=== PATIENT | female | born 1985 | race American Indian/Alaskan Native ===

== ENCOUNTER 2018-04-29 08:28 | Emergency (ER) | payer SELFPAY ==
[2018-04-29] MEDS ORDERED: MOTRIN PO ONE (08:48)
[2018-04-29 09:41] LABS: Hemoglobin 12.5 gm/dl (10.1-14.3); Mean Corpuscular HGB Conc 34 % (30-34); Mean Corpuscular Hemoglobin 28 pg (28-32); Mean Corpuscular Volume 83 fl (79-97); Platelet Count 210 K/mm3 (140-440); Red Blood Count 4.44 M/mm3 (3.65-5.03); Red Cell Distribution Width 13.9 % (13.2-15.2)
[2018-04-29 09:52] LABS: Bilirubin,Urine NEG (Negative); Blood,Urine SM (Negative); Color,Urine Yellow (Yellow); Mucus,Urine 3+ /HPF; Protein,Urine <15 mg/dL mg/dL (Negative)
[2018-04-29 09:59] LABS: Alanine Aminotransferase 11 units/L (7-56); Albumin 4.3 g/dL (3.9-5); BUN/Creatinine Ratio 9; Blood Urea Nitrogen 6 mg/dL (7-17); Hemolysis Index 3
[2018-04-29 10:43] LABS: Basophils % (Manual) 0 % (0.0-1.8); Eosinophils % (Manual) 0 % (0.0-4.3); Platelet Estimate Consistent w Auto; RBC Morphology Normal; Total Cells Counted 100
[2018-04-29] MEDS ORDERED: TORADOL IM ONE (11:11)
--- NOTE | 2018-04-29 11:19 | Emergency Department Report ---
ED General Adult HPI - General Chief complaint: Abdominal Pain Stated complaint: HEADACH BODY/STOMACH PAIN Time Seen by Provider: 04/29/18 10:54 Source: patient Mode of arrival: Ambulatory Limitations: No Limitations - History of Present Illness Initial comments: Patient is 32 years old female with history of sickle cell trait. Patient presented to the ER complaining of generalized body ache especially joints. Patient stated that she had low-grade temperature for the last few days. She denied any cough, nausea or vomiting. Patient denied any headache neck pain or other symptoms. Severity scale (0 -10): 10 - Related Data Allergies Allergy/AdvReac Type Severity Reaction Status Date / Time No Known Allergies Allergy Unverified 04/29/18 08:42 ED Review of Systems ROS: Stated complaint: HEADACH BODY/STOMACH PAIN Other details as noted in HPI Comment: All other systems reviewed and negative Constitutional: fever. denies: chills ENT: denies: ear pain, throat pain Respiratory: denies: cough, orthopnea, shortness of breath Cardiovascular: denies: chest pain, palpitations, dyspnea on exertion Gastrointestinal: denies: abdominal pain, nausea, vomiting, diarrhea, constipation, hematemesis, melena, hematochezia Musculoskeletal: back pain, arthralgia, myalgia Neurological: denies: headache, weakness, numbness, paresthesias, confusion, abnormal gait ED Past Medical Hx - Past Medical History Hx Sickle Cell Disease: Yes Hx Asthma: Yes Additional medical history: heart murmer, afib - Surgical History Past Surgical History?: Yes Additional Surgical History: s2 - Social History Smoking Status: Never Smoker Substance Use Type: None ED Physical Exam - General Limitations: No Limitations General appearance: alert, in no apparent distress - Head Head exam: Present: atraumatic, normocephalic, normal inspection - Eye Eye exam: Present: normal appearance, PERRL - ENT ENT exam: Present: normal exam, normal orophraynx, mucous membranes moist - Neck Neck exam: Present: normal inspection, full ROM. Absent: tenderness, meningismus, lymphadenopathy, thyromegaly - Respiratory Respiratory exam: Present: normal lung sounds bilaterally. Absent: respiratory distress, wheezes, rales, rhonchi, stridor, chest wall tenderness, accessory muscle use, decreased breath sounds, prolonged expiratory - Cardiovascular Cardiovascular Exam: Present: regular rate, normal rhythm, normal heart sounds - GI/Abdominal GI/Abdominal exam: Present: soft, normal bowel sounds. Absent: distended, tenderness, guarding, rebound, rigid, organomegaly - Extremities Exam Extremities exam: Present: normal inspection, full ROM, normal capillary refill - Back Exam Back exam: Present: normal inspection, full ROM. Absent: tenderness, CVA tenderness (R), CVA tenderness (L), muscle spasm, paraspinal tenderness, vertebral tenderness, rash noted - Neurological Exam Neurological exam: Present: alert, oriented X3, CN II-XII intact, normal gait, reflexes normal - Skin Skin exam: Present: warm, intact, normal color ED Course Vital Signs 04/29/18 04/29/18 04/29/18 08:42 08:54 11:34 Temperature 99.6 F Pulse Rate 98 H Respiratory 16 18 18 Rate Blood Pressure 116/77 O2 Sat by Pulse 98 Oximetry ED Medical Decision Making - Lab Data Result diagrams: 04/29/18 09:22 04/29/18 09:22 - Medical Decision Making She stated that she is feeling much better. Labs reviewed no evidence of sickle cell crisis. I will of this is most likely a viral syndrome. I advised patient to take plenty of rest and fluids and to follow up with her primary care physician in the next 2-3 days, also advised her to return to the ER if her symptoms are not improving. Critical care attestation.: If time is entered above; I have spent that time in minutes in the direct care of this critically ill patient, excluding procedure time. ED Disposition Clinical Impression: Pain, generalized Disposition: DC-01 TO HOME OR SELFCARE Is pt being admited?: No Condition: Stable Instructions: Abdominal Pain (ED), Viral Syndrome (ED) Referrals: PRIMARY CARE, [Primary Care Provider] - 3-5 Days
[2018-04-29 12:19] VITALS: BP 118/72
== END 2018-04-29 12:16 | disposition home or self-care (01) ==
LOC: ED 08:28
DX: D57.3 Sickle-cell trait (principal); J45.909 Unspecified asthma, uncomplicated; I48.91 Unspecified atrial fibrillation; B34.9 Viral infection, unspecified
CPT/HCPCS: 36415; 80053; 81001; 84703; 85007; 85025; 85045; 96372; 99283; J1885